=== PATIENT | female | born 1960 | race Caucasian/White ===

== ENCOUNTER 2023-05-14 20:00 | Outpatient (CLI) | payer OTHER, SELFPAY | END 2023-05-14 20:01 | disposition home or self-care (01) | LOC: SLEEP 05-15 05:22 | PROVIDERS: Visit Provider Anesthesiology Pain Medicine | DX: G47.10 Hypersomnia, unspecified (principal) | CPT/HCPCS: 95810 ==

== ENCOUNTER → 2023-05-24 16:31 | Outpatient (BNVA) | payer OTHER, SELFPAY | PROVIDERS: Visit Provider Internal Medicine | DX: E88.81 Metabolic syndrome and other insulin resistance (principal); E03.9 Hypothyroidism, unspecified | CPT/HCPCS: 36415; 80048; 83036; 83525; 84439; 84443; 84480 ==

== ENCOUNTER 2023-06-26 06:00 | Outpatient (RCR) | payer OTHER, SELFPAY | END 2023-07-11 12:16 | disposition home or self-care (01) | LOC: GPT 06:00 | PROVIDERS: Visit Provider Orthopaedic Surgery | DX: M17.11 Unilateral primary osteoarthritis, right knee (principal) | CPT/HCPCS: 97110; 97161 ==

== ENCOUNTER 2023-07-24 06:00 | Outpatient (RCR) | payer OTHER, SELFPAY | END 2023-08-21 23:59 | disposition home or self-care (01) | LOC: GPT 06:00 | PROVIDERS: Visit Provider Orthopaedic Surgery | DX: Z47.1 Aftercare following joint replacement surgery (principal); Z96.651 Presence of right artificial knee joint | CPT/HCPCS: 97110; 97140; 97162 ==

== ENCOUNTER 2023-08-22 06:00 | Outpatient (RCR) | payer OTHER, SELFPAY | END 2023-09-20 23:59 | disposition home or self-care (01) | LOC: GPT 06:00 | PROVIDERS: Visit Provider Orthopaedic Surgery | DX: Z47.1 Aftercare following joint replacement surgery (principal); Z96.651 Presence of right artificial knee joint | CPT/HCPCS: 97110; 97140 ==

== ENCOUNTER 2023-08-29 09:55 | Outpatient (CLI) | payer OTHER, SELFPAY ==
--- NOTE | 2023-08-29 10:00 | MM_ITS ---
WS: [id number] BILATERAL SCREENING DIGITAL TOMOSYNTHESIS MAMMOGRAM WITH CAD HISTORY: SCREENING COMPARISON: 05/20/2020, 06/02/2021 Bilateral CC and MLO views with tomosynthesis and synthetic mammography submitted. Computer aided det ection analyzed. Breast composition: There are scattered areas of fibroglandular density. No suspicious masses, microc alcifications or architectural distortion. Asymmetries and breast arterial calcifications are stable. IMPRESSION: MM/[place] [id number] BI-RADS: 2-Benign FOLLOW UP: 1 Year Follow-up
== END 2023-08-29 09:56 | disposition home or self-care (01) ==
LOC: MOBLMAM 10:03
PROVIDERS: Visit Provider Nurse Practitioner
DX: Z12.31 Encounter for screening mammogram for malignant neoplasm of breast (principal)
CPT/HCPCS: 77063; 77067

== ENCOUNTER 2023-08-30 09:21 | Outpatient (CLI) | payer OTHER, SELFPAY ==
[2023-08-30 10:19] LABS: Free T4 Free Thyroxine 1.18 ng/dL (0.82-1.77); Thyroid Stimulating Hormone 0.42 uIU/mL (0.27-4.20)
[2023-08-31 10:15] LABS: T3 Total 110 ng/dL (76-181)
== END 2023-08-30 09:22 | disposition home or self-care (01) ==
PROVIDERS: PCP Nurse Practitioner; Visit Provider Internal Medicine
DX: E03.9 Hypothyroidism, unspecified (principal); E88.810 Metabolic syndrome; E88.818 Other insulin resistance
CPT/HCPCS: 36415; 84439; 84443; 84480

== ENCOUNTER 2023-09-21 06:00 | Outpatient (RCR) | payer OTHER, SELFPAY | END 2023-10-01 23:59 | disposition home or self-care (01) | LOC: GPT 06:00 | PROVIDERS: PCP Nurse Practitioner; Visit Provider Orthopaedic Surgery | DX: Z47.1 Aftercare following joint replacement surgery (principal); Z96.651 Presence of right artificial knee joint | CPT/HCPCS: 97110; 97140 ==

== ENCOUNTER 2023-12-26 13:33 | Outpatient (CLI) | payer MEDICARE, OTHER, SELFPAY ==
--- NOTE | 2023-12-26 13:37 | MR_ITS ---
WS: [id number] MRI LUMBAR SPINE NONCONTRAST HISTORY: VERTEBROGENIC LOW BACK PAIN COMPARISON: None available. TECHNIQUE: Sagittal and axial multisequence imaging is submitted. Mild cervical stenosis at C5-6. 2 mm retrolisthesis of L2 and L3. No acute fracture. Disc spaces are desiccated and mildly narrowed. Most significant disc space narrowing is at L2-3. Conus terminates normally at L1-2 disc level. L1-L2: Mild annular disc bulging and facet arthritis. L2-L3: Mild annular disc bulging with osteophytic ridging, mild ligamentum flavum and facet arthritis . Disc and osteophyte encroachment upon the traversing L3 nerve roots. Additional moderate bilateral foraminal stenosis. Asymmetric disc bulging to the LEFT. L3-L4: Diffuse annular disc bulging with ligamentum flavum and facet arthritis. RIGHT foraminal disc protrusion. There is mild disc encroachment upon the subarticular recesses and the L4 traversing nerv e roots. Moderate central, bilateral subarticular recess and moderate LEFT foraminal stenosis. More s evere RIGHT foraminal stenosis. L4-L5: Diffuse annular disc bulging with a central disc protrusion. Ligamentum flavum and facet arthr itis. Mild central with bilateral subarticular recess stenosis and LEFT foraminal stenosis. Moderate RIGHT foraminal stenosis. L5-S1: Diffuse annular disc bulging contacting the S1 nerve roots. Moderate facet arthritis. Mild for aminal stenosis. Paravertebral soft tissues are negative. IMPRESSION: 1. Multilevel areas of stenosis throughout the lumbar spine due to combination of disc, osteophyte a nd facet disease. 2. L2-3: Moderate bilateral foraminal stenosis with disc and osteophyte encroachment upon the racquel sing L3 nerve roots. 3. L3-4: Severe RIGHT foraminal stenosis with moderate central, bilateral subarticular recess and mo derate LEFT foraminal stenosis. 4. L4-5: Moderate RIGHT foraminal stenosis. Mild central, bilateral subarticular recess and LEFT for aminal stenosis. 5. L5-S1: Mild foraminal stenosis.
[2023-12-26] MEDS: gadobenate dimeglumine 20 mL vial IV (13:49)
== END 2023-12-26 13:34 | disposition home or self-care (01) ==
LOC: RAD 13:33
PROVIDERS: PCP Nurse Practitioner; Visit Provider Anesthesiology Pain Medicine
DX: M48.07 Spinal stenosis, lumbosacral region (principal); M47.817 Spondylosis without myelopathy or radiculopathy, lumbosacral region; M25.78 Osteophyte, vertebrae
CPT/HCPCS: 72148; A9577

== ENCOUNTER 2024-02-19 11:26 | Outpatient (CLI) | payer MEDICARE, OTHER, SELFPAY ==
[2024-02-19 12:47] LABS: Estmated Average Glucose 97
[2024-02-20 15:05] LABS: T3 Total 97 ng/dL (76-181)
[2024-02-21 08:10] LABS: Insulin ( Reference Lab Test) 7.7 uIU/mL
[2024-02-22 06:45] LABS: Thyroid Peroxidase Antobodies 4 IU/mL (<9)
[2024-02-27 17:14] LABS: TSH Receptor Binding Antibody <1.00 IU/L (< OR = 2.00)
== END 2024-02-19 11:27 | disposition home or self-care (01) ==
LOC: LAB 11:28
PROVIDERS: PCP Nurse Practitioner; Visit Provider Internal Medicine
DX: E03.9 Hypothyroidism, unspecified (principal); E09.9 Drug or chemical induced diabetes mellitus without complications; E88.810 Metabolic syndrome
CPT/HCPCS: 36415; 83036; 83516; 83525; 84432; 84480; 86376; 86800

== ENCOUNTER → 2024-03-11 08:00 | Outpatient (BNVA) | payer MEDICARE, OTHER, SELFPAY | PROVIDERS: PCP Nurse Practitioner; Visit Provider Internal Medicine | DX: E03.9 Hypothyroidism, unspecified (principal); E88.819 Insulin resistance, unspecified; Z79.890 Hormone replacement therapy | CPT/HCPCS: 36415; 84439; 84443; 99214 ==

== ENCOUNTER 2024-07-25 06:00 | Outpatient (RCR) | payer MEDICARE, OTHER, SELFPAY | END 2024-08-21 23:59 | disposition home or self-care (01) | LOC: GPT 06:00 | PROVIDERS: Visit Provider Orthopaedic Surgery | DX: Z98.890 Other specified postprocedural states (principal) | CPT/HCPCS: 97110; 97112; 97140; 97161; 97535 ==

== ENCOUNTER 2024-08-22 06:00 | Outpatient (RCR) | payer MEDICARE, OTHER, SELFPAY | END 2024-09-20 23:59 | disposition home or self-care (01) | LOC: GPT 06:00 | PROVIDERS: Visit Provider Orthopaedic Surgery | DX: Z98.890 Other specified postprocedural states (principal) | CPT/HCPCS: 97110; 97112; 97140 ==

== ENCOUNTER 2024-09-21 06:00 | Outpatient (RCR) | payer MEDICARE, OTHER, SELFPAY | END 2024-10-21 23:59 | disposition home or self-care (01) | LOC: GPT 06:00 | PROVIDERS: Visit Provider Orthopaedic Surgery | DX: Z98.890 Other specified postprocedural states (principal) | CPT/HCPCS: 97110; 97112; 97140 ==

== ENCOUNTER → 2024-10-01 09:17 | Outpatient (BNVA) | payer MEDICARE, OTHER, SELFPAY | PROVIDERS: PCP Nurse Practitioner; Visit Provider Nurse Practitioner | DX: J98.4 Other disorders of lung (principal) | CPT/HCPCS: 71046; 71100 ==

== ENCOUNTER 2024-10-22 06:00 | Outpatient (RCR) | payer MEDICARE, OTHER, SELFPAY | END 2024-11-21 23:59 | disposition home or self-care (01) | LOC: GPT 06:00 | PROVIDERS: PCP Nurse Practitioner; Visit Provider Orthopaedic Surgery | DX: Z98.890 Other specified postprocedural states (principal) | CPT/HCPCS: 97110; 97140 ==

== ENCOUNTER 2024-12-10 10:27 | Outpatient (RCR) | payer MEDICARE, OTHER, SELFPAY | END 2024-12-19 23:59 | disposition home or self-care (01) | LOC: GPT 10:27 | PROVIDERS: Visit Provider Orthopaedic Surgery | DX: Z98.890 Other specified postprocedural states (principal) | CPT/HCPCS: 97110; 97140; 97161 ==

== ENCOUNTER 2024-12-20 05:58 | Outpatient (RCR) | payer MEDICARE, OTHER, SELFPAY | END 2025-01-19 23:59 | disposition home or self-care (01) | LOC: GPT 05:58 | PROVIDERS: Visit Provider Orthopaedic Surgery | DX: M17.12 Unilateral primary osteoarthritis, left knee (principal) | CPT/HCPCS: 97110; 97161; 97535 ==

== ENCOUNTER 2024-12-20 06:00 | Outpatient (RCR) | payer MEDICARE, OTHER, SELFPAY | END 2025-01-19 23:59 | disposition home or self-care (01) | LOC: GPT 06:00 | PROVIDERS: Visit Provider Orthopaedic Surgery | DX: Z98.890 Other specified postprocedural states (principal) | CPT/HCPCS: 97110; 97112; 97140; 97164 ==

== ENCOUNTER 2025-01-20 06:00 | Outpatient (RCR) | payer MEDICARE, OTHER, SELFPAY | END 2025-02-18 23:59 | disposition home or self-care (01) | LOC: GPT 06:00 | PROVIDERS: Visit Provider Orthopaedic Surgery | DX: Z98.890 Other specified postprocedural states (principal) | CPT/HCPCS: 97110; 97112; 97140 ==

== ENCOUNTER 2025-01-20 06:00 | Outpatient (RCR) | payer MEDICARE, OTHER, SELFPAY | END 2025-02-18 23:59 | disposition home or self-care (01) | LOC: GPT 06:00 | PROVIDERS: Visit Provider Orthopaedic Surgery | DX: M17.12 Unilateral primary osteoarthritis, left knee (principal) | CPT/HCPCS: 97110 ==

== ENCOUNTER → 2025-03-19 09:00 | Outpatient (BNVA) | payer MEDICARE, OTHER, SELFPAY | PROVIDERS: PCP Nurse Practitioner; Visit Provider Internal Medicine | DX: E03.9 Hypothyroidism, unspecified (principal) | CPT/HCPCS: 36415; 84436; 84439; 84480; 84481; 99214 ==

== ENCOUNTER → 2025-04-06 15:31 | Outpatient (BNVA) | payer MEDICARE, OTHER, SELFPAY | PROVIDERS: PCP Nurse Practitioner; Visit Provider Internal Medicine | DX: E03.9 Hypothyroidism, unspecified (principal) | CPT/HCPCS: 84443 ==

== ENCOUNTER 2025-06-10 11:00 | Outpatient (CLI) | payer MEDICARE, OTHER, SELFPAY ==
--- NOTE | 2025-06-10 11:00 | MM_ITS ---
WS: [id number] BILATERAL 3D TOMOSYNTHESIS DIGITAL SCREENING MAMMOGRAPHY WITH CAD CLINICAL INFORMATION: SCREENING HISTORY: Screening mammogram. No current complaints. COMPARISON: 2022 TECHNIQUE: Bilateral CC and MLO views. FINDINGS: Scattered fibroglandular densities bilaterally. No suspicious focal mass, asymmetry, calcifications, or architectural distortion. No evidence of malignancy. Incidental punctate and lucent centered calcifications. Vascular calcifications. MM/MM scr tomosynthesis [id number] IMPRESSION: DENSITY: There are scattered areas of fibroglandular density. BI-RADS: 2 - Benign. FOLLOW UP: 1 Year Follow-up Recommend return to annual screening mammography.
== END 2025-06-10 11:01 | disposition home or self-care (01) ==
LOC: MOBLMAM 11:02
PROVIDERS: PCP Nurse Practitioner; Visit Provider Nurse Practitioner
DX: Z12.31 Encounter for screening mammogram for malignant neoplasm of breast (principal); R92.323 Mammographic fibroglandular density, bilateral breasts; R92.1 Mammographic calcification found on diagnostic imaging of breast
CPT/HCPCS: 77063; 77067

== ENCOUNTER 2025-06-22 06:30 | Outpatient (RCR) | payer MEDICARE, OTHER, SELFPAY | END 2025-07-21 23:59 | disposition home or self-care (01) | LOC: GPT 06:30 | PROVIDERS: PCP Nurse Practitioner; Visit Provider Nurse Practitioner | DX: M25.552 Pain in left hip (principal); M46.1 Sacroiliitis, not elsewhere classified; M25.551 Pain in right hip | CPT/HCPCS: 97110; 97112; 97140; 97161 ==

== ENCOUNTER 2025-08-14 08:57 | Outpatient (RCR) | payer MEDICARE, OTHER, SELFPAY | END 2025-08-21 23:59 | disposition home or self-care (01) | LOC: GPT 08:57 | PROVIDERS: PCP Nurse Practitioner; Visit Provider Nurse Practitioner | DX: M25.552 Pain in left hip (principal); M25.551 Pain in right hip; M46.1 Sacroiliitis, not elsewhere classified | CPT/HCPCS: 97110; 97112; 97140 ==

== ENCOUNTER 2025-09-16 11:07 | Outpatient (RCR) | payer MEDICARE, OTHER, SELFPAY | END 2025-09-20 23:59 | disposition home or self-care (01) | LOC: GPT 11:07 | PROVIDERS: PCP Nurse Practitioner; Visit Provider Nurse Practitioner | DX: M25.552 Pain in left hip (principal); M46.1 Sacroiliitis, not elsewhere classified; M25.551 Pain in right hip | CPT/HCPCS: 97110; 97112; 97140; 97164 ==

== ENCOUNTER 2025-10-12 12:11 | Outpatient (RCR) | payer MEDICARE, OTHER, SELFPAY | END 2025-10-21 23:59 | disposition home or self-care (01) | LOC: GPT 12:11 | PROVIDERS: PCP Nurse Practitioner; Visit Provider Nurse Practitioner | DX: M25.552 Pain in left hip (principal); M46.1 Sacroiliitis, not elsewhere classified; M25.551 Pain in right hip | CPT/HCPCS: 97110; 97112; 97140; 97164 ==